=== PATIENT | female | born 1940 | race Caucasian/White ===

== ENCOUNTER 2017-08-11 12:49 | Outpatient (RCR) | payer MEDICARE, SELFPAY | END 2017-08-28 | LOC: PULREHAB 12:49 | PROVIDERS: Visit Provider Nurse Practitioner Family | DX: R06.02 Shortness of breath (principal) ==

== ENCOUNTER → 2017-08-21 | Outpatient (CLI) | payer MEDICARE, SELFPAY | PROVIDERS: Visit Provider Internal Medicine Adolescent Medicine | DX: R27.0 Ataxia, unspecified (principal) | CPT/HCPCS: 36415; 80053; 85025 ==

== ENCOUNTER → 2017-11-05 10:47 | Outpatient (POV) | payer MEDICARE, SELFPAY | PROVIDERS: PCP Internal Medicine Adolescent Medicine; Visit Provider Dentist | DX: Z00.00 Encounter for general adult medical examination without abnormal findings (principal) ==

== ENCOUNTER → 2017-11-06 16:30 | Outpatient (CLI) | payer MEDICARE, SELFPAY ==
[2017-11-07 10:44] LABS: Occult Blood,Stool Positive (Negative)
== END ==
PROVIDERS: Visit Provider Internal Medicine Adolescent Medicine
DX: D64.9 Anemia, unspecified (principal)
CPT/HCPCS: 82272; G0328

== ENCOUNTER → 2018-06-25 16:13 | Outpatient (REF) | payer MEDICARE, SELFPAY ==
[2018-06-25 16:16] LABS: Microscopic, Urine URINE MICROSCOPIC (MICROSCOPIC)
[2018-06-25 19:18] LABS: Appearance,Urine CLOUDY (Clear); Bilirubin,Urine Negative (Negative); Blood, Urine Negative (Negative); Color,Urine YELLOW (Yellow); Glucose,Urine (UA) Negative (Negative); Ketones,Urine Negative (Negative); Leukocyte Esterase,Urine 2+ (Negative); Nitrate,Urine Negative (Negative); Protein,Urine 1+ (Negative); Specific Gravity, Urine 1.025 (1.005-1.030)
[2018-06-25 19:47] LABS: Bacteria,Urine 2+ /lpf; WBC,Urine 20-50 #/hpf (0-3)
== END ==
LOC: LAB.DROPOF 16:13
PROVIDERS: Visit Provider Nurse Practitioner Family
DX: N39.0 Urinary tract infection, site not specified (principal)
CPT/HCPCS: 81001; 87086; 87088; 87186

== ENCOUNTER → 2019-01-08 16:29 | Outpatient (CLI) | payer MEDICARE, SELFPAY ==
[2019-01-08 19:32] LABS: Microscopic, Urine URINE MICROSCOPIC (MICROSCOPIC)
[2019-01-08 20:05] LABS: Appearance,Urine SL CLOUDY (Clear); Bilirubin,Urine Negative (Negative); Blood, Urine TRACE-L (Negative); Color,Urine YELLOW (Yellow); Glucose,Urine (UA) Negative (Negative); Ketones,Urine 1+ (Negative); Leukocyte Esterase,Urine 2+ (Negative); Nitrate,Urine Negative (Negative); Protein,Urine Negative (Negative); Specific Gravity, Urine 1.025 (1.005-1.030); Urobilinogen,Urine 0.2 EU/dl (0.2)
[2019-01-08 20:09] LABS: WBC,Urine 50-100 #/hpf (0-3)
[2019-01-08 20:10] LABS: Bacteria,Urine 1+ /lpf
== END ==
PROVIDERS: Visit Provider Internal Medicine Adolescent Medicine
DX: N39.0 Urinary tract infection, site not specified (principal)
CPT/HCPCS: 81001; 87086; 87088; 87186

== ENCOUNTER → 2019-09-28 13:34 | Outpatient (CLI) | payer MEDICARE, SELFPAY ==
--- NOTE | 2019-09-28 13:38 | CA_ITS ---
APPROVED REPORT EXAM: Comprehensive 2D, Doppler, and color-flow Echocardiogram Network Contract Manager: Angela Guerrero RDCS Ht: 5 ft 3 in Wt: 123lbs BSA: 1.57 BP: 107/68 mmHg Indications: Chest Pain, COPD, Shortness of Breath, Dyspnea M-Mode Dimensions RVDd 2.81 cm (0.9-2.6) LVDd 4.94 cm (3.5-5.7) LVDs 4.26 cm (3.5-5.7) IVSd 0.65 cm (0.6-1.1) PWd 0.57 cm (0.6-1.1) EF (Teich) 29.30% FS 13.80% EDV (Teich) 115.00 mL ESV (Teich) 81.30 mL LV Diastology E/A Ratio 0.69 Mitral Valve MV A Velocity 80.00 (40-130 cm/s) Left Ventricle Left atrium is mildly enlarged, left ventricle is normal size, mild concentric left ventricular hypertrophy, visually estimated ejection fraction 55% with no regional wall motion abnormality. Grade 1 diastolic dysfunction seen without tissue Doppler evidence of raise left atrial pressure. Right Ventricle Right atrium and right ventricle mildly enlarged with normal contractility. Aortic Valve Aortic valve is minimally thickened and fibrosed, there is no aortic stenosis, there is mild aortic insufficiency. Mitral Valve Mitral valve leaflets are minimally thickened, there is mild mild regurgitation. Tricuspid Valve Tricuspid valve is grossly normal, there is mild tricuspid regurgitation. Pulmonic Valve Pulmonic valve is poorly visualized. Great Vessels Aortic root is normal size. Pericardium No significant pericardial effusion noted. Conclusion 1. Mild biatrial enlargement, normal left ventricular size, mild concentric left ventricular hypertrophy, visually estimated ejection fraction 55% with no regional wall motion abnormality, grade 1 diastolic dysfunction seen without tissue Doppler evidence of raise left atrial pressure. 2. Mildly enlarged right ventricle with normal contractility. 3. Mild aortic, mild mitral and tricuspid regurgitation. 4. No significant pericardial effusion noted. Electronically signed by : Jordi Santiago, 09/29/2019 15:10:37
== END ==
PROVIDERS: PCP Family Medicine; Visit Provider Nurse Practitioner Family
DX: R06.02 Shortness of breath (principal)
CPT/HCPCS: 93306

== ENCOUNTER → 2019-10-20 14:24 | Outpatient (CLI) | payer MEDICARE, SELFPAY ==
--- NOTE | 2019-10-20 14:32 | CT_ITS ---
PROCEDURE: CT CHEST WO CON CLINICAL INDICATION: COPD,CHRONIC RESPIRATORY FAILURE, COMPARISON: [facility] CT CHEST W/O CONTRAST from 07/28/2017 TECHNIQUE: Axial images obtained with sagittal and coronal reformats. All CT scans at the facility use one or more dose reduction, viz: automated exposure control, ma/kV adjustment per patient size (including targeted exams where dose is matched to indication, i.e. head), or iterative reconstruction technique. FINDINGS: HEART AND MEDIASTINAL STRUCTURES: There is healed granulomatous disease with calcified subcarinal lymph nodes. Noncalcified precarinal lymph node unchanged 1.5 x 1.7 centimeters is noted. Coronary arterial calcifications are noted. LUNGS AND PLEURAL SPACES: There is moderate to severe COPD. Calcified granuloma is seen in the right lower lobe. There are some new reticular nodular densities in the left lung field. Progression of chronic pneumonitis versus acute reticular nodular interstitial pneumonitis would have to be considered. There is no focal alveolar infiltrate. 5 millimeter noncalcified indeterminate pulmonary nodule is seen in the anterior right base unchanged BONY STRUCTURES: No acute bony abnormalities apparent. UPPER ABDOMEN: Multiple calcified splenic granulomas are noted. There are several fluid density lesions within the liver dome unchanged and most consistent with cysts. There is mild enlargement of the left adrenal gland which is unchanged. ADDITIONAL FINDINGS: No other significant abnormalities. IMPRESSION: Severe COPD. Some new reticular nodular densities are present in the left upper lung field including left upper lobe and left lower lobe. Mild acute pneumonitis versus progression of chronic pneumonitis should be considered. No change in precarinal lymphadenopathy. Dictated by: tSar Glasgow 10/20/2019 15:43 Electronically signed by Star Glasgow in [place] 10/20/2019 15:43
== END ==
PROVIDERS: PCP Family Medicine; Visit Provider Internal Medicine Sleep Medicine
DX: J44.9 Chronic obstructive pulmonary disease, unspecified (principal); J96.10 Chronic respiratory failure, unspecified whether with hypoxia or hypercapnia
CPT/HCPCS: 71250

== ENCOUNTER → 2019-10-25 09:38 | Outpatient (CLI) | payer MEDICARE, SELFPAY ==
--- NOTE | 2019-10-25 09:49 | US_ITS ---
PROCEDURE: US GALLBLADDER CLINICAL INDICATION: GALLSTONES COMPARISON: [facility]BD[facility] CT ABD PELVIS W/ CONTRAST from 12/04/2016 CT CHEST WO CON from 10/20/2019 FINDINGS: Pancreas: Unremarkable/Not well seen Liver: There is a small Paddock cyst in the dome of the liver at 7 mm. There is a small hyperechoic focus in the central aspect of the liver and could be due to focal fatty infiltration at 15 mm.. There is appropriate direction of blood flow within a non dilated portal vein. Right kidney: Unremarkable appearing. No hydronephrosis. Gallbladder: No stones are evident. There is no gallbladder wall thickening. Common duct is normal in diameter. IMPRESSION: Negative gallbladder ultrasound. No stones evident. Dictated by: Ruperto Sotelo MD 10/25/2019 18:15 Electronically signed by Ruperto Sotelo MD in [place] 10/25/2019 18:15
== END ==
PROVIDERS: PCP Family Medicine; Visit Provider Family Medicine
DX: R10.9 Unspecified abdominal pain (principal)
CPT/HCPCS: 76705

== ENCOUNTER 2021-07-15 11:41 | Emergency (ER) | payer MEDICARE, SELFPAY ==
[2021-07-15 11:43] VITALS: BP 123/67; PULSE 103; RESP 24; TEMP 36.3; O2SAT 99; BMI 19.5
--- NOTE | 2021-07-15 12:10 | XR_ITS ---
PROCEDURE: XR CHEST PORTABLE CLINICAL HISTORY: copd, productive cough, increased soa COMPARISON: CR CXR CHEST(2 VIEWS-NOT PORTABLE) from 04/27/2017 CR CXR CHEST(2 VIEWS-NOT PORTABLE) from 05/01/2017 CR XR CHEST 2V from 05/05/[address] CHEST WO CON from 10/20/2019 FINDINGS: There is moderate patient rotation. COPD changes. Normal heart size. The lungs are clear without infiltrates, suspicious nodules, or pleural effusions. No acute bony abnormalities. IMPRESSION: Moderate patient rotation with COPD changes. Dictated by: Ruperto Sotelo MD 07/15/2021 12:34 Ruperto Sotelo MD in [place] 07/15/2021 12:34
[2021-07-15 12:45] LABS: Coronavirus 19, PCR Not Detected (NotDetected); Influenza A, PCR Not Detected (NotDetected); Influenza B, PCR Not Detected (NotDetected)
[2021-07-15 12:47] LABS: Basophils # 0.1 K/mm3 (0-0.2); Basophils % 1.2 % (0.1-2.0); Eosinophils # 0.1 K/mm3 (0.0-0.4); Hematocrit 39.2 % (37.0-47.0); Lymphocytes # 0.8 K/mm3 (0.7-4.5); Lymphocytes % 8.1 % (10-50); Mean Corpuscular HGB Conc 33.1 g/dL (31.8-35.4); Mean Corpuscular Hemoglobin 31.4 pg (27.0-31.2); Mean Corpuscular Volume 94.8 fl (81-99); Mean Platelet Volume 7.9 fl (7.4-10.4); Monocytes # 0.6 K/mm3 (0.1-1.0); Monocytes % 6.4 % (1.7-9.3); Neutrophils # 7.9 K/mm3 (1.8-7.8); Neutrophils % 83.3 % (37.0-80.0); Platelet Count 250 K/mm3 (142-424); Red Blood Count 4.13 M/mm3 (4.20-5.40); Red Cell Distribution Width 13.5 % (11.5-17.5); White Blood Count 9.5 K/mm3 (4.8-10.8)
[2021-07-15 12:52] LABS: Chloride 94 mmol/L (98-107); Potassium 3.8 mmoL/L (3.5-5.1); Sodium 136 mmol/L (136-145)
[2021-07-15 12:55] LABS: Alanine Aminotransferase 18 U/L (12-78); Albumin Level 4.3 g/dl (3.5-5.0); Albumin/Globulin Ratio 1.5 (1.1-1.8); Alkaline Phosphatase 79 U/L (38-126); Anion Gap 12.8 mEq/L (5-15); Aspartate Amino Transferase 35 U/L (14-36); Blood Urea Nitrogen 16 mg/dl (7-17); Carbon Dioxide 33 mmol/L (22.0-30.0); Creatinine Clearance Estimated 31 mL/min (50-200); Estimated Glomerular Filt Rate 95 ml/min (>60); GFR (African American) 116 ML/MIN (>60); Globulin 2.8 g/dL (1.3-3.2); Total Protein,Serum 7.1 g/dl (6.3-8.2)
[2021-07-15 12:56] LABS: Calcium 9.4 mg/dl (8.4-10.2); Glucose 130 mg/dl (74-100)
--- NOTE | 2021-07-15 13:43 | [facility].EDSOB ---
ED Disposition Clinical Impression: Acute exacerbation of chronic obstructive airways disease Acute bronchitis Qualifiers: Bronchitis organism: unspecified organism Qualified Code(s): J20.9 - Acute bronchitis, unspecified Disposition: Home, Self-Care Condition on Discharge: Good Instructions: DI for Chronic Obstructive Pulmonary Disease Prescriptions: Doxycycline Monohydrate [Doxycycline [place] 100mg Tab] 100 mg PO Q12 #20 tab Transmission Status: Pending to [facility] predniSONE [Prednisone 50mg Tab] 50 mg PO DAILY #5 tab Transmission Status: Pending to [facility] Referrals: Humberto Martinez MD [Primary Care Provider] - - Critical Care Critical Care Time: No Attestation: On 07/15/21, the high probability of a clinically significant, sudden or life threatening deterioration of the following system(s) required my full and direct attention, intervention and personal management. The time I documented below is in addition to time spent performing reported procedures but includes the following listed in this critical care notation. Medical Decision Making - Medical Records Medical records reviewed: Yes: I reviewed the patient's medical records. - [place] Inquiry Pt receiving controlled substance: No Vital Signs: 07/15/21 11:43 07/15/21 14:25 Temperature 97.4 F L Temperature Source Oral Pulse Rate 106 H Pulse Rate [Right Radial] 103 H Respiratory Rate 24 Blood Pressure [Right Arm] 123/67 Blood Pressure Mean [Right Arm] 85 Blood Pressure Source [Right Arm] Automatic Cuff Blood Pressure Position [Right Arm] Sitting 02 Sat by Pulse Oximetry 99 Oxygen Delivery Method Nasal Cannula Oxygen Flow Rate (LPM) 3 - Lab Data Lab Results 07/15/21 11:58: Sodium 136, Potassium 3.8, Chloride 94 L, Carbon Dioxide 33 H, Anion Gap 12.8, BUN 16, Creatinine 0.60, Estimated Creat Clear 31, Estimated GFR 95, Est GFR ( Amer) 116, Glucose 130 H, Calcium 9.4, Total Bilirubin 1.0, AST 35, ALT 18, Alkaline Phosphatase 79, Total Protein 7.1, Albumin 4.3, Globulin 2.8, Albumin/Globulin Ratio 1.5 07/15/21 12:06: WBC 9.5, RBC 4.13 L, Hgb 13.0, Hct 39.2, MCV 94.8, MCH 31.4 H, MCHC 33.1, RDW 13.5, Plt Count 250, MPV 7.9, Neut % (Auto) 83.3 H, Lymph % (Auto) 8.1 L, [place] % (Auto) 6.4, Eos % (Auto) 1.0, Baso % (Auto) 1.2, Neut # (Auto) 7.9 H, Lymph # (Auto) 0.8, [place] # (Auto) 0.6, Eos # (Auto) 0.1, Baso # (Auto) 0.1 07/15/21 12:06: SARS-CoV-2 (PCR) Not detected, Influenza A Untype (PCR) Not detected, Influenza Type B (PCR) Not detected Result diagrams: 07/15/21 12:06 07/15/21 11:58 Orders (Tests/Meds): ED MEDICATIONS Discontinued Medications Generic Name Dose Route Start Last Admin Trade Name Freq PRN Reason Stop Dose Admin Albuterol/Ipratropium 3 ml 07/15/21 13:43 07/15/21 14:25 Ipratropium/Albuterol 3 Ml Neb IH 07/15/21 13:44 3 ml ONCE ONE Administration Dexamethasone Sodium Phosphate 10 mg 07/15/21 13:43 07/15/21 14:22 Dexamethasone 4mg/Ml 5ml Mdv IV 07/15/21 13:44 10 mg ONCE ONE Administration Doxycycline Hyclate 100 mg/ 250 mls @ 166.667 mls/hr 07/15/21 13:43 07/15/21 14:21 Sodium Chloride IV 07/15/21 13:44 166.667 mls/hr ONCE ONE Administration - Radiology Data #1 Image(s): Chest Image Reviewed: Yes I reviewed the patient's radiology results, Yes I reviewed the patient's radiology image, Yes I have reviewed radiologist's interpretation IMPRESSION: Moderate patient rotation with COPD changes. - Reevaluation(s) Time: 14:42 Reevaluation #1: On reevaluation, the patient is feeling better. She is saturating well on her home oxygen. There is no significant respiratory distress or dyspnea. I do believe her findings are consistent with bronchitis as well as COPD exacerbation. We will give her a dose of IV steroids and IV antibiotics in the emergency department. The patient and family member have elected to attempt outpatient t
[2021-07-15 14:25] VITALS: PULSE 106; PULSE 107
[2021-07-15 16:10] VITALS: BP 129/71; PULSE 101; RESP 22; TEMP 36.3; O2SAT 99
== END 2021-07-15 16:12 | disposition home or self-care (01) ==
PROVIDERS: Emergency Provider Emergency Medicine; PCP Family Medicine
DX: J44.1 Chronic obstructive pulmonary disease with (acute) exacerbation (principal); J44.0 Chronic obstructive pulmonary disease with (acute) lower respiratory infection; Z99.81 Dependence on supplemental oxygen; Z20.822 Contact with and (suspected) exposure to COVID-19; Z79.899 Other long term (current) drug therapy
CPT/HCPCS: 71045; 80053; 85025; 96365; 96375; 99283; C9803; U0003; U0005

== ENCOUNTER → 2022-07-29 14:12 | Outpatient (CLI) | payer MEDICARE, SELFPAY ==
--- NOTE | 2022-07-29 14:22 | CT_ITS ---
FINAL REPORT TECHNIQUE: Axial images were obtained from the lung apex to the mid abdomen by computed tomography. Coronal reformatted images were obtained. This study was performed with techniques to keep radiation doses as low as reasonably achievable, (ALARA). Individualized dose reduction techniques using automated exposure control or adjustment of mA and/or kV according to the patient's size were employed. CLINICAL HISTORY: Lung nodules COMPARISON: October 2019 FINDINGS: No adenopathy. Normal heart size. No pleural or pericardial effusion. Resolution of reticulo nodular changes in the left lower lobe. Underlying emphysema. Ovoid nodule along the right minor fissure stable likely an intrafissural lymph node. No new pulmonary nodule. IMPRESSION: Emphysema without suspicious nodule or acute process. Reviewed, Interpreted and Dictated by Humberto Mg MD Transcribed by Gigi Manzo Authenticated and . [facility]
[2022-07-29 16:10] VITALS: PULSE 81; PULSE 89
== END ==
PROVIDERS: PCP Family Medicine; Visit Provider Internal Medicine Pulmonary Disease
DX: R91.8 Other nonspecific abnormal finding of lung field (principal)
CPT/HCPCS: 71250; 94060; 94618; 94640; 94727; 94729; 94762